=== PATIENT | female | born 1945 | race Caucasian/White ===

== ENCOUNTER 2017-01-11 10:49 | Inpatient (IN) | payer OTHER, MEDICARE ==
[2017-01-11] VITALS (9 sets, daily range): BP systolic 115–172; BP diastolic 62–82; PULSE 66–91; RESP 16–20; TEMP 97.4–98.1; O2SAT 96–100
[~2017-01-11] VITALS: Ht 160 cm; Wt 66.7 kg
[~2017-01-11 10:49] MED LIST: CIPR500T2 PO; LORT5TAB PO; MENE0.3T3 PO; METR-1 PO; PRIL20TA2 PO; PROM25SU8 PO; SIMV20 PO
[2017-01-11] MEDS ORDERED: SODIUM CHLOR 0.9% 1000 ML INJ 1,000 ML IV SCH ×2 (11:18→15:15)
--- NOTE | 2017-01-11 11:26 | PD ---
HPI Chief Complaint: Cardiac Complaint Time Seen by Provider: 11:05 Travel History International Travel<30 days: No Contact w/Intl Traveler<30days: No Traveled to known affect area: No History of Present Illness HPI 71-year-old female complains of abdominal pain with diarrhea. Patient states that the symptoms started this morning. Patient was driving her car and started having severe abdominal cramping and sharp pain. Patient pulled over on the side of the road. EMS was called. Patient was found to have bradycardic with heart rate in the 30s at the scene. Patient was given atropine 0.5 mg IV, Zofran 4 mg IV, normal saline solution 600 mL IV. Patient was admitted for to the ED for evaluation. Patient has history hypertension, diabetes on diet control, dyslipidemia, a defibrillation. Patient's on digoxin and Xarelto. Patient denies any headache. Patient denies any chest pain or shortness of breath. Patient states the abdominal pain cramping pain sharp pain diffuse over the abdomen. Patient denies any pain radiation. Patient denied dysuria or frequency. Patient denies any fever chills. Patient denies any back pain. On a scale of 1-10 the pain is an 8. Patient having diarrhea in the room in the ED. PFSH Past Medical History Atrial Fibrillation: Yes Cardiovascular Problems: Yes (AFIB) High Cholesterol: Yes Diminished Hearing: No GERD: Yes ?: Not Ectopic : Yes Past Surgical History Hysterectomy: Yes Other Surgery: Yes (BREAST AUGMENTATION X2) Social History Alcohol Use: Yes (OCCASIONAL GLASS OF WINE) Tobacco Use: No Substance Use: No Allergies-Medications (Allergen,Severity, Reaction): Coded Allergies: Sulfa (Verified Allergy, Intermediate, HEADACHES, 01/11/17) Uncoded Allergies: TAPE (Adverse Reaction, Mild, BLISTERS, 03/14/08) Reported Meds & Prescriptions Reported Meds & Active Scripts Active Reported Doxycycline (Doxycycline (Monohydrate)) 50 Mg Cap 50 Mg PO EVERY OTHER DAY Co Q 10 (Coenzyme Q10 (Ubidecarenone)) 100 Mg Cap 100 Mg PO DAILY Xarelto (Rivaroxaban) 20 Mg Tab 20 Mg PO DAILY Zegerid (Omeprazole-Sodium Bicarbonate) 20-1,100 Mg Cap 1 Cap PO DAILY Pristiq 24 HR (Desvenlafaxine ER 24 HR) 100 Mg Tab 100 Mg PO HS Atorvastatin (Atorvastatin Calcium) 40 Mg Tab 40 Mg PO HS Levothyroxine (Levothyroxine Sodium) 75 Mcg Tab 75 Mcg PO DAILY Digoxin 0.125 Mg Tab 0.125 Mg PO DAILY Lisinopril 10 Mg Tab 10 Mg PO DAILY Metoprolol Tartrate 25 Mg Tab 25 Mg PO DAILY Review of Systems General / Constitutional: No: Fever Eyes: No: Visual changes HENT: No: Headaches Cardiovascular: No: Chest Pain or Discomfort Respiratory: No: Shortness of Breath Gastrointestinal: Positive: Diarrhea, Abdominal Pain Genitourinary: No: Dysuria Musculoskeletal: No: Pain Skin: No Rash Neurologic: No: Weakness Psychiatric: No: Depression Endocrine: No: Polydipsia Hematologic/Lymphatic: No: Easy Bruising Physical Exam Narrative GENERAL: Well-nourished, well-developed patient. SKIN: Focused skin assessment warm/dry. HEAD: Normocephalic. EYES: No scleral icterus. No injection or drainage. NECK: Supple, trachea midline. No JVD or lymphadenopathy. CARDIOVASCULAR: Regular rate and rhythm without murmurs, gallops, or rubs. RESPIRATORY: Breath sounds equal bilaterally. No accessory muscle use. GASTROINTESTINAL: Abdomen soft, nondistended. Patient has moderate diffuse tenderness over the abdomen. No rebound tenderness. No mass. MUSCULOSKELETAL: No cyanosis, or edema. BACK: Nontender without obvious deformity. No CVA tenderness. Neurologic exam normal. Data Data Last Documented VS Vital Signs Date Time Temp Pulse Resp B/P Pulse Ox O2 Delivery O2 Flow Rate FiO2 01/11/17 14:00 66 16 172/66 97 Room Air 01/11/17 10:52 97.4 Orders Complete Blood Count With Diff (01/11/17 11:18) Comprehensive Metabolic Panel (01/11/17 11:18) Prothrombin Time / Inr (Pt) (01/11/17 11:18) Act Partial Throm Time (Ptt) (01/11/17 11:18) Urinalysis - C+S If Indicated (01/11/17 11:18) Iv Access Insert/Monitor (01/11/17 11:18) Ecg Monitoring (01/11/17 11:18) Oximetry (01/11/17 11:18) Sodium Chlor 0.9% 1000 Ml Inj (Ns 1000 M (01/11/17 11:18) Electrocardiogram (01/11/17 11:18) Chest, Single Ap (01/11/17 11:18) Digoxin (01/11/17 11:19) Thyroid Stimulating Hormone (01/11/17 11:19) Morphine Inj (Morphine Inj) (01/11/17 11:30) Ondansetron Inj (Zofran Inj) (01/11/17 11:30) Ct Abd/Pel W Iv Contrast(Rout) (01/11/17 11:21) Iohexol 350 Inj (Omnipaque 350 Inj) (01/11/17 13:56) Levofloxacin 750 Mg Premix Inj (Levaquin (01/11/17 15:15) Metronidazole 500 Mg Inj (Flagyl 500 Mg (01/11/17 15:15) Labs Laboratory Tests Test 01/11/17 01/11/17 11:21 14:08 White Blood Count 4.4 TH/MM3 Red Blood Count 4.37 MIL/MM3 Hemoglobin 11.6 GM/DL Hematocrit 35.6 % Mean Corpuscular Volume 81.6 FL Mean Corpuscular Hemoglobin 26.5 PG Mean Corpuscular Hemoglobin 32.4 % Concent Red Cell Distribution Width 16.9 % Platelet Count 231 TH/MM3 Mean Platelet Volume 7.9 FL Neutrophils (%) (Auto) 50.7 % Lymphocytes (%) (Auto) 35.7 % Monocytes (%) (Auto) 10.2 % Eosinophils (%) (Auto) 2.7 % Basophils (%) (Auto) 0.7 % Neutrophils # (Auto) 2.2 TH/MM3 Lymphocytes # (Auto) 1.6 TH/MM3 Monocytes # (Auto) 0.4 TH/MM3 Eosinophils # (Auto) 0.1 TH/MM3 Basophils # (Auto) 0.0 TH/MM3 CBC Comment DIFF FINAL Differential Comment Prothrombin Time 12.2 SEC Prothromb Time International 1.1 RATIO Ratio Activated Partial 21.5 SEC Thromboplast Time Sodium Level 140 MEQ/L Potassium Level 4.4 MEQ/L Chloride Level 108 MEQ/L Carbon Dioxide Level 25.1 MEQ/L Anion Gap 7 MEQ/L Blood Urea Nitrogen 20 MG/DL Creatinine 1.06 MG/DL Estimat Glomerular Filtration 51 ML/MIN Rate Random Glucose 113 MG/DL Calcium Level 8.8 MG/DL Total Bilirubin 0.3 MG/DL Aspartate Amino Transf 34 U/L (AST/SGOT) Alanine Aminotransferase 38 U/L (ALT/SGPT) Alkaline Phosphatase 52 U/L Total Protein 6.1 GM/DL Albumin 3.0 GM/DL Thyroid Stimulating Hormone 1.690 uIU/ML 3rd Gen Digoxin Level 1.0 NG/ML Urine Color LIGHT-YELLOW Urine Turbidity CLEAR Urine pH 7.5 Urine Specific [place] 1.008 Urine Protein NEG mg/dL Urine Glucose (UA) NEG mg/dL Urine Ketones NEG mg/dL Urine Occult Blood NEG Urine Nitrite NEG Urine Bilirubin NEG Urine Urobilinogen LESS THAN 2.0 MG/DL Urine Leukocyte Esterase NEG Urine RBC LESS THAN 1 /hpf Urine WBC LESS THAN 1 /hpf Urine Squamous Epithelial 1 /hpf Cells Microscopic Urinalysis Comment CULT NOT INDICATED MDM Medical Decision Making Medical Screen Exam Complete: Yes Emergency Medical Condition: Yes Interpretation(s) 12:39 PM. Last Impressions Chest X-Ray 01/11/17 1118 Signed Impressions: Service Date/Time: Wednesday, January 11, 2017 11:30 - CONCLUSION: No acute disease. Mau Jackson MD 12:39 PM. CBC within normal limit. BUN 20. Creatinine 1.06. Digoxin 1.0. [address] scan abdomen and pelvis shows mild colitis involving sigmoid colon. Last Impressions Abdomen/Pelvis CT 01/11/17 1121 Signed Impressions: Service Date/Time: Wednesday, January 11, 2017 13:45 - CONCLUSION: 1. Enlargement of the liver with decreased attenuation suggesting fatty infiltration. 2. Trace amount of free fluid within the pelvis. 3. Subtle bowel wall thickening inflammatory changes involving the sigmoid colon suggesting a mild colitis. Everardo Dowd MD Chest X-Ray 01/11/17 1118 Signed Impressions: Service Date/Time: Wednesday, January 11, 2017 11:30 - CONCLUSION: No acute disease. Mau Jackson MD Differential Diagnosis Differential diagnosis including gastroenteritis, gastritis, PUD, pancreatitis, cholecystitis, colitis, UTI, pyelonephritis, sinus bradycardia, atrial fibrillation with slow ventricular response. Narrative Course 71-year-old female with abdominal pain and diarrhea. Normal saline solution 1 L IV bolus. Morphine 2 mg IV. Zofran 4 mg IV. Levaquin 750 mg IV. Flagyl 500 mg IV. Diagnosis Primary Impression: Colitis Eze Patiño MD January 11, 2017 11:26
[2017-01-11] MEDS ORDERED: ONDANSETRON HCL 4 MG/2 ML VIAL IV PUSH ONE (11:30)
[2017-01-11] MEDS ORDERED: MORPHINE SULFATE 4 MG/ML INJ IV PUSH ONE (11:30)
[2017-01-11 11:32] LABS: AUTOMATED NEUTROPHIL # 2.2 TH/MM3 (1.8-7.7); BASOPHIL % 0.7 % (0.0-2.0); EOSINOPHIL # 0.1 TH/MM3 (0-0.4); EOSINOPHIL % 2.7 % (0.0-4.0); HEMATOCRIT 35.6 % (35.0-46.0); HEMO FLAGS DIFF FINAL; LYMPH % 35.7 % (9.0-44.0); LYMPHOCYTE # 1.6 TH/MM3 (1.0-4.8); MEAN CELL VOLUME 81.6 FL (80.0-100.0); MEAN CORPUSCULAR HEMOGLOBIN 26.5 PG (27.0-34.0); MEAN CORPUSCULAR HGB CONC 32.4 % (32.0-36.0); MONO % 10.2 % (0.0-8.0); NEUT % 50.7 % (16.0-70.0); PLATELET COUNT 231 TH/MM3 (150-450); RED BLOOD COUNT 4.37 MIL/MM3 (4.00-5.30); RED CELL DISTRIBUTION WIDTH 16.9 % (11.6-17.2); WHITE BLOOD COUNT 4.4 TH/MM3 (4.0-11.0)
[2017-01-11] MEDS ORDERED: ZEGE20CA4 PO (11:40)
[2017-01-11] MEDS ORDERED: CO Q100C9 PO (11:40)
[2017-01-11] MEDS ORDERED: XARE20TA PO (11:40)
[2017-01-11] MEDS ORDERED: DOXY0.02 PO (11:40)
[2017-01-11] MEDS ORDERED: ATOR40TA16 PO (11:40)
[2017-01-11] MEDS ORDERED: LEVO75TA3 PO (11:40)
[2017-01-11] MEDS ORDERED: DIGO0.12 PO (11:40)
[2017-01-11] MEDS ORDERED: METO25TA3 PO (11:40)
[2017-01-11] MEDS ORDERED: LISI10TA3 PO (11:40)
[2017-01-11] MEDS ORDERED: PRIS100T PO (11:40)
[2017-01-11 11:48] LABS: APTT (PATIENT) 21.5 SEC (24.3-30.1); INTERNATIONAL NORMALIZED RATIO 1.1 RATIO; PROTHROMBIN TIME - PATIENT 12.2 SEC (9.8-11.6)
[2017-01-11 11:59] LABS: ANION GAP 7 MEQ/L (5-15); AST (GOT) 34 U/L (15-37); BICARBONATE 25.1 MEQ/L (21.0-32.0); BLOOD UREA NITROGEN 20 MG/DL (7-18); CHLORIDE 108 MEQ/L (98-107); GLOMERULAR FILTRATION RATE 51 ML/MIN (>89); POTASSIUM 4.4 MEQ/L (3.5-5.1); SODIUM (NA) 140 MEQ/L (136-145)
[2017-01-11 12:02] LABS: ALKALINE PHOSPHATASE 52 U/L (45-117); ALT (GPT) 38 U/L (10-53); TOTAL BILIRUBIN ADULT 0.3 MG/DL (0.2-1.0)
--- NOTE | 2017-01-11 12:12 | RADRPT ---
EXAM DATE/TIME: 01/11/2017 11:30 [facility] COMPARISON: No previous studies available for comparison. INDICATIONS : Epigastric pain this morning. MEDICAL HISTORY : Hypercholesterolemia. Gastroesophageal reflux disease. Atrial fibrillation. SURGICAL HISTORY : Hysterectomy. ENCOUNTER: Initial ACUITY: 1 day PAIN SCORE: 5/10 LOCATION: Abdomen, upper quadrant. FINDINGS: A single view of the chest demonstrates the lungs to be symmetrically aerated without evidence of mas s, infiltrate or effusion. The cardiomediastinal contours are unremarkable. Osseous structures are intact. CONCLUSION: No acute disease. Mau aJckson MD on January 11, 2017 at 12:07 Board Certified Radiologist. This report was verified electronically.
[2017-01-11] MEDS ORDERED: IOHEXOL 350 MG/ML 10 ML VIAL (for RAD DIAG) IV ONE (13:56)
[2017-01-11 14:28] LABS: BLOOD, URINE NEG (NEG); GLUCOSE,URINE NEG (NEG); KETONE, URINE NEG (NEG); NITRITE,URINE NEG (NEG); PH, URINE 7.5 (5.0-8.5); SQUAMOUS EPITHELIAL CELL URINE 1 /hpf (0-5); URINE COLOR LIGHT-YELLOW (YELLW/STRAW)
[2017-01-11 14:34] LABS: COMMENT (UR) CULT NOT INDICATED; CULTURE IF INDICATED CULT NOT INDICATED
--- NOTE | 2017-01-11 14:40 | RADRPT ---
EXAM DATE/TIME: 01/11/2017 13:45 [facility] COMPARISON: No previous studies available for comparison. INDICATIONS : Generalized abdominal pain. IV CONTRAST: 94 cc Omnipaque 350 (iohexol) IV ORAL CONTRAST: No oral contrast ingested. RADIATION DOSE: 5.38 CTDIvol (mGy) MEDICAL HISTORY : Cardiovascular disease. SURGICAL HISTORY : Hysterectomy. ENCOUNTER: Initial ACUITY: 1 day PAIN SCALE: 5/10 LOCATION: Bilateral abdomen TECHNIQUE: Volumetric scanning of the abdomen and pelvis was performed. Using automated exposure control and ad justment of the mA and/or kV according to patient size, radiation dose was kept as low as reasonably achievable to obtain optimal diagnostic quality images. FINDINGS: The limited portion of the lung base visualized is clear. The liver is mildly enlarged. There is decreased attenuation of the liver suggesting diffuse fatty in filtration. The spleen, pancreas, adrenal glands and kidneys are intact. There is no retroperitoneal lymphadenopa thy. The visualized loops of small and large bowel in the upper abdomen are unremarkable. No free air or f ree fluid is present. Imaging through the pelvis demonstrate a small amount of free fluid within the low pelvis. The patien t is post hysterectomy. No iliac or inguinal adenopathy is present. Imaging of the loops of small large bowel within the pelvis demonstrate subtle bowel wall thickening of the distal sigmoid colon and slight inflammatory changes this could suggest a mild colitis. The visualized bony structures are grossly intact. CONCLUSION: 1. Enlargement of the liver with decreased attenuation suggesting fatty infiltration. 2. Trace amount of free fluid within the pelvis. 3. Subtle bowel wall thickening inflammatory changes involving the sigmoid colon suggesting a mild co litis. Everardo Dowd MD on January 11, 2017 at 14:26 Board Certified Radiologist. This report was verified electronically.
[2017-01-11] MEDS ORDERED: LEVOFLOXACIN 750 MG PREMIX INJ 150 ML IV ONE (15:15)
[2017-01-11] MEDS ORDERED: metroNIDAZOLE 500 MG INJ 100 ML IV ONE (15:15)
[2017-01-11] MEDS ORDERED: diphenhydrAMINE HCL 50 MG/ML VIAL IV PUSH ONE (15:15)
[2017-01-11] MEDS ORDERED: METOCLOPRAMIDE HCL 10 MG/2 ML VIAL IV PUSH ONE (15:15)
[2017-01-11] MEDS ORDERED: MORPHINE SULFATE 4 MG/ML INJ IV PUSH PRN (16:15)
--- NOTE | 2017-01-11 16:28 | HHI.HP ---
[facility] Primary Care Physician Thierno Ramirez MD Admission Diagnosis colitis Diagnoses: Chief Complaint: Abdominal pain , diarrhea Travel History International Travel<30 Days: No Contact w/Intl Traveler <30 Da: No Traveled to Known Affected Are: No History of Present Illness Patient is a very pleasant 70-year-old female with known history of atrial fibrillation, hypertension, hypothyroidism who this morning while driving suddenly experienced abdominal cramps severe almost to the point of passing out. Patient pulled the car over to the side and called her who in turn called EMS and on site patient's heart rate was noted to be in the 30s. Patient was in severe pain. She was given atropine IV on the site. On further questioning patient has been having on and off diarrhea all her life and has had several colonoscopies several times in the past. Patient moves her bowels on a daily basis intermittent loose stools. However for the past 2-3 days have been having loose stools brown yellow liquid. On evaluation here in the ER was noted to have guaiac-positive stools and lupus stools had bright red blood. patient admitted for further evaluation and management. Denies any family members with the same complaints Review of Systems Constitutional: DENIES: Diaphoretic episodes, Fatigue, Fever, Weight gain, Weight loss, Chills, Dizziness, Change in appetite, Night Sweats Endocrine: DENIES: Abnorml menstrual pattern, Heat/cold intolerance, Polydipsia , Polyuria, Polyphagia Eyes: DENIES: Blurred vision, Diplopia, Eye inflammation, Eye pain, Vision loss , Photosensitivity, Double Vision Ears, nose, mouth, throat: DENIES: Tinnitus, Hearing loss, Vertigo, Nasal discharge, Oral lesions, Throat pain, Hoarseness, Ear Pain, Running Nose, Epistaxis, Sinus Pain, Toothache, Odynophagia Respiratory: DENIES: Apneas, Cough, Snoring, Wheezing, Hemoptysis, Sputum production, Shortness of breath Cardiovascular: DENIES: Chest pain, Palpitations, Syncope, Dyspnea on Exertion , PND, Lower Extremity Edema, Orthopnea, Claudication Gastrointestinal: COMPLAINS OF: Diarrhea Genitourinary: DENIES: Abnormal vaginal bleeding, Dysmenorrhea, Dyspareunia, Sexual dysfunction, Urinary frequency, Urinary incontinence, Urgency, Hematuria , Dysuria, Nocturia, Vaginal discharge Musculoskeletal: DENIES: Joint pain, Muscle aches, Stiffness, Joint Swelling, Back pain, Neck pain Integumentary: DENIES: Abnormal pigmentation, Pruritus, Rash, Nail changes, Breast masses, Breast skin changes, Nipple discharge Hematologic/lymphatic: DENIES: Bruising, Lymphadenopathy Immunologic/allergic: DENIES: Eczema, Urticaria Neurologic: DENIES: Abnormal gait, Headache, Localized weakness, Paresthesias, Seizures, Speech Problems, Tremor, Poor Balance Psychiatric: DENIES: Anxiety, Confusion, Mood changes, Depression, Hallucinations, Agitation, Suicidal Ideation, Homicidal Ideation, Delusions Past Family Social History Past Medical History History of atrial fibrillation, hypertension History of colitis in the past History of hypothyroidism History of obstructive sleep apnea C Pap at bedtime in the past but discontinued History of ectopic pregnancies 2 Past Surgical History Breasts implants Reported Medications Lopressor 25 mg daily Lisinopril 10 mg daily Digoxin 0.125 mg daily Synthroid 75 g daily next an 8 pravastatin 1 tab daily Prostatic 100 mg daily Surgery with 20 mg daily "omeprazole plus sodium bicarbonate up" daily Xarelto 20 mg daily Coenzyme Q 100 mg daily Doxycycline 50 mg every other day for a skin/scalp condition Claritin when necessary Allergies: Coded Allergies: Sulfa (Verified Allergy, Intermediate, HEADACHES, 01/11/17) Uncoded Allergies: TAPE (Adverse Reaction, Mild, BLISTERS, 03/14/08) Family History Noncontributory Social History History of smoking quit 50 years ago Occasional wine No history of substance abuse Physical Exam Vital Signs Vital Signs Date Time Temp Pulse Resp B/P Pulse Ox O2 Delivery O2 Flow Rate FiO2 01/11/17 14:00 66 16 172/66 97 Room Air 01/11/17 12:00 78 16 115/68 97 Room Air 01/11/17 11:24 16 98 Room Air 01/11/17 10:52 97.4 91 16 157/82 100 Physical Exam GENERAL: Awake alert, weak looking, in no apparent distress. SKIN: No rashes, ecchymoses or lesions. Cool and dry. HEAD: Atraumatic. Normocephalic. No temporal or scalp tenderness. Scalp no active lesions EYES: Pupils equal round and reactive. Extraocular motions intact. No scleral icterus. No injection or drainage. ENT: Nose without bleeding, purulent drainage or septal hematoma. Throat without erythema, tonsillar hypertrophy or exudate. Uvula midline. Airway patent. Dry oral mucosa NECK: Trachea midline. No JVD or lymphadenopathy. Supple, nontender, no meningeal signs. CARDIOVASCULAR: Irregular rhythm without murmurs, gallops, or rubs. RESPIRATORY: Clear to auscultation. Breath sounds equal bilaterally. No wheezes , rales, or rhonchi. GASTROINTESTINAL: Abdomen , few bowel sounds, tender to palpation of both lower quadrant area MUSCULOSKELETAL: Extremities without clubbing, cyanosis, or edema. No joint tenderness, effusion, or edema noted. No calf tenderness. Negative Homans sign bilaterally. NEUROLOGICAL: Awake and alert. Cranial nerves II through XII intact. Motor and sensory grossly within normal limits. Five out of 5 muscle strength in all muscle groups. Normal speech. Laboratory Laboratory Tests Test 01/11/17 01/11/17 11:21 14:08 White Blood Count 4.4 Red Blood Count 4.37 Hemoglobin 11.6 Hematocrit 35.6 Mean Corpuscular Volume 81.6 Mean Corpuscular Hemoglobin 26.5 Mean Corpuscular Hemoglobin 32.4 Concent Red Cell Distribution Width 16.9 Platelet Count 231 Mean Platelet Volume 7.9 Neutrophils (%) (Auto) 50.7 Lymphocytes (%) (Auto) 35.7 Monocytes (%) (Auto) 10.2 Eosinophils (%) (Auto) 2.7 Basophils (%) (Auto) 0.7 Neutrophils # (Auto) 2.2 Lymphocytes # (Auto) 1.6 Monocytes # (Auto) 0.4 Eosinophils # (Auto) 0.1 Basophils # (Auto) 0.0 CBC Comment DIFF FINAL Differential Comment Prothrombin Time 12.2 Prothromb Time International 1.1 Ratio Activated Partial 21.5 Thromboplast Time Sodium Level 140 Potassium Level 4.4 Chloride Level 108 Carbon Dioxide Level 25.1 Anion Gap 7 Blood Urea Nitrogen 20 Creatinine 1.06 Estimat Glomerular Filtration 51 Rate Random Glucose 113 Calcium Level 8.8 Total Bilirubin 0.3 Aspartate Amino Transf 34 (AST/SGOT) Alanine Aminotransferase 38 (ALT/SGPT) Alkaline Phosphatase 52 Total Protein 6.1 Albumin 3.0 Thyroid Stimulating Hormone 1.690 3rd Gen Digoxin Level 1.0 Urine Color LIGHT-YELLOW Urine Turbidity CLEAR Urine pH 7.5 Urine Specific [place] 1.008 Urine Protein NEG Urine Glucose (UA) NEG Urine Ketones NEG Urine Occult Blood NEG Urine Nitrite NEG Urine Bilirubin NEG Urine Urobilinogen LESS THAN 2.0 Urine Leukocyte Esterase NEG Urine RBC LESS THAN 1 Urine WBC LESS THAN 1 Urine Squamous Epithelial 1 Cells Microscopic Urinalysis Comment CULT NOT INDICATED Result Diagram: 01/11/17 1121 01/11/17 1121 Imaging Last Impressions Abdomen/Pelvis CT 01/11/17 1121 Signed Impressions: Service Date/Time: Wednesday, January 11, 2017 13:45 - CONCLUSION: 1. Enlargement of the liver with decreased attenuation suggesting fatty infiltration. 2. Trace amount of free fluid within the pelvis. 3. Subtle bowel wall thickening inflammatory changes involving the sigmoid colon suggesting a mild colitis. Everardo Dowd MD Chest X-Ray 01/11/17 1118 Signed Impressions: Service Date/Time: Wednesday, January 11, 2017 11:30 - CONCLUSION: No acute disease. Mau Jackson MD 12-lead EKG shows atrial rhythm no acute ST-T wave changes Assessment and Plan Assessment and Plan 71-year-old female presenting with Bradycardia most likely vagal response to severe pain. History of chronic atrial fibrillation- rate controlled- initially jesse from vagal reaction history of hypertension Will monitor on telemetry hold off on digoxin and Lopressor for now and restart in a.m. Continue on Lisinopril Will hold off on Xarelto with GIB - for possible scope in a.m. Acute LGIB due to Acute colitis/diarrhea , lower GI bleed secondary to colitis Patient started on Levaquin and Flagyl IV. We'll send stools for C. difficile (patient on doxycycline anne marie years)- Discontinue home doxycycline GI will be following Morphine sulfate IV prn for pain Acute kidney injury secondary to diarrhea Continue on IV fluids Follow BMP History of GERD. Continue on PPI IV route History of hyperlipidemia continue on statins History of hypothyroidism continue on Synthroid. TSH normal TEDs Discussed Condition With Patient and at bedside Physician Certification 2 Midnight Certification Type: Admission for Inpatient Services Order for Inpatient Services The services are ordered in accordance with Medicare regulations or non- Medicare payer requirements, as applicable. In the case of services not specified as inpatient-only, they are appropriately provided as inpatient services in accordance with the 2-midnight benchmark. Estimated LOS (days): 3 days is the estimated time the patient will need to remain in the hospital, assuming treatment plan goals are met and no additional complications. Post-Hospital Plan: Home Wayne Braswell MD January 11, 2017 16:28 Wayne Braswell MD January 11, 2017 16:28
[2017-01-11] MEDS: PANTOPRAZOLE SODIUM 40 MG VIAL IV PUSH SCH (17:29)
--- NOTE | 2017-01-11 17:54 | MB ---
cc: ELVIS LIRIANO. JOSEFA CAMACHO M.D., ALFEA M. M.D. DATE OF CONSULTATION January 11, [address] Liriano REASON FOR CONSULTATION Abdominal pain, rectal bleeding, colitis. HISTORY OF PRESENT ILLNESS Mrs. Cole is a 70-year-old lady with on and off problems with abdominal pain and discomfort. She states that she has severe abdominal pain requiring her to kiln puller on the side of the road when she was driving. This was followed by some diarrhea and rectal bleeding. She was then brought to the hospital. CT scan here suggests possibility of mild left-sided colitis. The patient continues to pass blood, continues to have diarrhea and is having left lower quadrant abdominal pain. REVIEW OF SYSTEMS Lower quadrant abdominal pain, passing blood clots and diarrhea. No hematemesis are reported at this time. PAST MEDICAL HISTORY Atrial fibrillation, hypertension, history of colitis in the past, hypothyroidism, obstructive sleep apnea. PAST SURGICAL HISTORY Breast implants, colonoscopy, endoscopy in the past about 4 years ago. MEDICATIONS On admission: 1. Lopressor. 2. Lisinopril. 3. Digoxin. 4. Synthroid. 5. Omeprazole 20 milligrams Xarelto. 6. Doxycycline. 7. Claritin. ALLERGIES ALLERGIES TO SULFA DRUGS. FAMILY HISTORY Family history is noncontributory. SOCIAL HISTORY The patient drinks wine occasionally. No other drugs reported. No smoking. PHYSICAL EXAMINATION GENERAL: physical examination reveals a well-nourished lady in no apparent distress. VITAL SIGNS: Stable. HEAD AND NECK EXAMINATION: Anicteric sclerae. CHEST: Bilateral air entry with rales. ABDOMEN: Abdomen is soft. Tenderness to palpation with guarding in the left lower quadrant. 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 RECTAL: The rectal exam is deferred at this time. LABORATORY DATA Labs reveal white cell count of 4.4, hemoglobin is 11.6, creatinine is 1.06. Liver function tests are normal. IMAGING STUDIES CT of the abdomen and pelvis reveals enlarged liver and some subtle bowel wall thickening in the sigmoid colon. IMPRESSION Colitis. RECOMMENDATIONS Stool studies have been ordered. Hold off on Xarelto at this time. Hold off on the doxycycline. The patient has been started on Levaquin and Flagyl. Colonoscopy is tentatively planned for tomorrow. This has been discussed with the patient and the as well as Dr. Braswell. Thank you for this referral. MD RADHA Lara /4:47 PM /5:44 PM
[2017-01-11] MEDS: metroNIDAZOLE 500 MG INJ 100 ML IV SCH (18:14)
[2017-01-11] MEDS: D5-NS + KCL 20 MEQ INJ 1,000 ML IV SCH (18:58)
[2017-01-11 19:30] LABS: C. DIFF EPI 027 PRESUMPTIVE NEGATIVE (NEGATIVE); C. DIFF TOXIN PCR NEGATIVE (NEGATIVE)
[2017-01-11] MEDS: ONDANSETRON HCL 4 MG/2 ML VIAL IV PUSH PRN (20:10)
[2017-01-11] MEDS: ATORVASTATIN 40 MG TAB PO SCH (20:11)
[2017-01-11] MEDS ORDERED: DESVENLAFAXINE 100 MG PO SCH (21:00)
[2017-01-11] MEDS ORDERED: [UNRECOGNIZED DRUG - OTHER] PO SCH (21:00)
[2017-01-12] MEDS: metroNIDAZOLE 500 MG INJ 100 ML IV SCH ×4 (00:29→23:30)
[2017-01-12] MEDS: D5-NS + KCL 20 MEQ INJ 1,000 ML IV SCH ×2 (03:00→05:19)
[2017-01-12 04:18] VITALS: BP 124/66; PULSE 79; RESP 16; TEMP 98.2; O2SAT 99
[2017-01-12] MEDS: LEVOTHYROXINE SODIUM 75 MCG TAB PO SCH (05:18)
[2017-01-12 07:37] LABS: BICARBONATE 24.6 MEQ/L (21.0-32.0); POTASSIUM 3.9 MEQ/L (3.5-5.1)
[2017-01-12 08:00] VITALS: BP 140/76; PULSE 85; RESP 20; TEMP 98.1; O2SAT 99
[2017-01-12] MEDS ORDERED: NON-FORMULARY DRUG (Coenzyme Q10 (Ubidecarenone) (Co Q 10) 100 MG) PO SCH (09:00)
[2017-01-12] MEDS: LISINOPRIL 10 MG TAB PO SCH (09:16)
[2017-01-12] MEDS ORDERED: PEG (High)/E-LYTE SOLN 4000 ML BTL PO ONE (09:45)
--- NOTE | 2017-01-12 10:41 | HHI.PR ---
Subjective Remarks feeling better, mild abdominal "cramps", no nausea or vomiting + bright red black stools this am Objective Vitals Vital Signs Date Time Temp Pulse Resp B/P Pulse Ox O2 Delivery O2 Flow Rate FiO2 01/12/17 08:00 98.1 85 20 140/76 99 01/12/17 07:15 99 Room Air 01/12/17 04:18 98.2 79 16 124/66 99 01/11/17 23:45 98.1 85 16 137/62 96 01/11/17 20:15 97.4 76 16 145/67 100 01/11/17 20:00 85 01/11/17 18:30 98.0 80 20 124/75 98 01/11/17 17:00 66 16 149/74 99 Room Air 01/11/17 14:00 66 16 172/66 97 Room Air 01/11/17 12:00 78 16 115/68 97 Room Air 01/11/17 11:24 16 98 Room Air 01/11/17 10:52 97.4 91 16 157/82 100 I/O 01/11/17 01/11/17 01/11/17 01/12/17 01/12/17 01/12/17 07:00 15:00 23:00 07:00 15:00 23:00 Intake Total 60 ml 1106 ml Output Total 400 ml Balance 60 ml 706 ml Intake Oral 60 ml 240 ml IV Total 866 ml Output Urine Total 400 ml # Voids 1 # Bowel Movements 4 1 0 Result Diagram: 01/11/17 1121 01/12/17 0614 Imaging Last Impressions Abdomen/Pelvis CT 01/11/17 1121 Signed Impressions: Service Date/Time: Wednesday, January 11, 2017 13:45 - CONCLUSION: 1. Enlargement of the liver with decreased attenuation suggesting fatty infiltration. 2. Trace amount of free fluid within the pelvis. 3. Subtle bowel wall thickening inflammatory changes involving the sigmoid colon suggesting a mild colitis. Everardo Dowd MD Chest X-Ray 01/11/17 1118 Signed Impressions: Service Date/Time: Wednesday, January 11, 2017 11:30 - CONCLUSION: No acute disease. Mau Jackson MD Objective Remarks awake and alert, oriented x 3 anicteric lungs clear irregular rhythm abdomen- soft, good bowel sounds, no guarding or rigidity extremities no edema A/P Assessment and Plan 71-year-old female presenting with Bradycardia most likely vagal response to severe pain. History of chronic atrial fibrillation- rate controlled- initially jesse from vagal reaction history of hypertension Will monitor on telemetry hold off on digoxin and Lopressor for now and restart in a.m. Will hold off on Xarelto with GIB - for possible scope in a.m. restart her on her BB- Lopressor 6.25 mg po bid Acute LGIB due to Acute colitis/diarrhea on Levaquin and Flagyl IV. We'll send stools for C. difficile (patient on doxycycline anne marie years)- Discontinue home doxycycline GI will be following Morphine sulfate IV prn for pain Acute kidney injury secondary to diarrhea- Improved Continue on IV fluids Follow BMP History of GERD. Continue on PPI IV route History of hyperlipidemia continue on statins History of hypothyroidism continue on Synthroid. TSH normal Wayne Torrez MD January 12, 2017 10:41
[2017-01-12] MEDS ORDERED: PILL SPLITTER OTHER PRN (11:00)
[2017-01-12 12:00] VITALS: BP 112/65; PULSE 93; RESP 18; TEMP 97; O2SAT 95
[2017-01-12 12:40] LABS: HEMATOCRIT 35.7 % (35.0-46.0); MEAN CELL VOLUME 81.4 FL (80.0-100.0); MEAN CORPUSCULAR HEMOGLOBIN 25.7 PG (27.0-34.0); MEAN CORPUSCULAR HGB CONC 31.6 % (32.0-36.0); PLATELET COUNT 216 TH/MM3 (150-450); RED BLOOD COUNT 4.38 MIL/MM3 (4.00-5.30); RED CELL DISTRIBUTION WIDTH 17.1 % (11.6-17.2)
[2017-01-12 13:28] LABS: REVIEW FLAG FINAL
--- NOTE | 2017-01-12 14:58 | HHI.GIFU ---
Subjective Remarks Pt resting comfortably in bed. She said she is still passing bright red blood clots with BMs. No N/V, abd pain. (Tori Flood) Objective Vitals I&O Vital Signs Date Time Temp Pulse Resp B/P Pulse Ox O2 Delivery O2 Flow Rate FiO2 01/12/17 12:00 97.0 93 18 112/65 95 01/12/17 08:00 98.1 85 20 140/76 99 01/12/17 07:15 99 Room Air 01/12/17 04:18 98.2 79 16 124/66 99 01/11/17 23:45 98.1 85 16 137/62 96 01/11/17 20:15 97.4 76 16 145/67 100 01/11/17 20:00 85 01/11/17 18:30 98.0 80 20 124/75 98 01/11/17 17:00 66 16 149/74 99 Room Air I/O 01/11/17 01/11/17 01/11/17 01/12/17 01/12/17 01/12/17 07:00 15:00 23:00 07:00 15:00 23:00 Intake Total 60 ml 1106 ml Output Total 400 ml Balance 60 ml 706 ml Intake Oral 60 ml 240 ml IV Total 866 ml Output Urine Total 400 ml # Voids 1 # Bowel Movements 4 1 0 Laboratory Laboratory Tests Test 01/11/17 01/12/17 01/12/17 17:47 06:14 12:06 Stool C. difficile Toxin (PCR) NEGATIVE Stl C. difficile Toxin PRESUMPTIVE Epiderm 027 NEGATIVE Sodium Level 141 Potassium Level 3.9 Chloride Level 107 Carbon Dioxide Level 24.6 Anion Gap 9 Blood Urea Nitrogen 17 Creatinine 0.96 Estimat Glomerular Filtration 57 Rate Random Glucose 110 Calcium Level 8.2 White Blood Count 14.0 Red Blood Count 4.38 Hemoglobin 11.3 Hematocrit 35.7 Mean Corpuscular Volume 81.4 Mean Corpuscular Hemoglobin 25.7 Mean Corpuscular Hemoglobin 31.6 Concent Red Cell Distribution Width 17.1 Platelet Count 216 Mean Platelet Volume 8.2 Imaging Last Impressions Abdomen/Pelvis CT 01/11/17 1121 Signed Impressions: Service Date/Time: Wednesday, January 11, 2017 13:45 - CONCLUSION: 1. Enlargement of the liver with decreased attenuation suggesting fatty infiltration. 2. Trace amount of free fluid within the pelvis. 3. Subtle bowel wall thickening inflammatory changes involving the sigmoid colon suggesting a mild colitis. Everardo Dowd MD Chest X-Ray 01/11/17 1118 Signed Impressions: Service Date/Time: Wednesday, January 11, 2017 11:30 - CONCLUSION: No acute disease. Mau Jackson MD Physical Exam HEENT: EOMI; normocephalic; atraumatic; no jaundice. CHEST: Chest is clear to auscultation and percussion. CARDIAC: Regular rate and rhythm with no murmur gallop or rubs. ABDOMEN: Soft, nondistended, RLQ tenderness; no hepatosplenomegaly; bowel sounds are present in all four quadrants. EXTREMITIES: No clubbing, cyanosis, or edema. SKIN: Normal; no rash; no jaundice. OPERATIONS LIEUTENANT: No focal deficits; alert and oriented times three. (Tori Flood) Assessment and Plan Plan ASSESSMENT: - colitis - pt with diarrhea, passing blood with BMs. c diff neg. CT 01-11-17 -- -> 1. Enlargement of the liver with decreased attenuation suggesting fatty infiltration. 2. Trace amount of free fluid within the pelvis. 3. Subtle bowel wall thickening inflammatory changes involving the sigmoid colon suggesting a mild colitis. antibiotics. Colonoscopy tomorrow. PLAN: - colonoscopy tomorrow - obtain consent - golytely prep - clears today - NPO after midnight - further recommendations based on results of above - continue abx - supportive care This pt seen by myself and Dr Elliott and this note is written on his behalf ( Tori Flood) Physician Comments Stool studies -ve, still with bleeding . Colonoscopy tomorrow. (Lyudmila Elliott MD) Tori Flood January 12, 2017 14:58 Lyudmila Elliott MD January 12, 2017 15:41
[2017-01-12 16:00] VITALS: BP 150/76; PULSE 78; RESP 18; TEMP 98.1; O2SAT 100
[2017-01-12] MEDS: PANTOPRAZOLE SODIUM 40 MG VIAL IV PUSH SCH (17:26)
[2017-01-12] MEDS: LEVOFLOXACIN 500 MG PREMIX INJ 100 ML IV SCH (17:26)
--- NOTE | 2017-01-12 18:50 | EKG ---
Date Performed: 01/11/2017 Time Performed: 10:57:26 PTAGE: 71 years EKG: ATRIAL FIBRILLATION LOW QRS VOLTAGE IN PRECORDIAL LEADS SEPTAL MYOCARDIAL INFARCTION ABNORM AL ECG NO PREVIOUS TRACING DOCTOR: Brian Lux Interpretating Date/Time 01/12/2017 18:45:05
[2017-01-12] MEDS: ONDANSETRON HCL 4 MG/2 ML VIAL IV PUSH PRN (19:29)
[2017-01-12 20:00] VITALS: PULSE 80
[2017-01-12] MEDS: ATORVASTATIN 40 MG TAB PO SCH (20:09)
[2017-01-12] MEDS: METOPROLOL TARTRATE 25 MG TAB PO SCH (20:09)
[2017-01-12 23:22] VITALS: BP 158/72; PULSE 78; RESP 18; TEMP 98.2; O2SAT 99
[2017-01-12 23:36] LABS: HEMATOCRIT 34.8 % (35.0-46.0); MEAN CELL VOLUME 81.9 FL (80.0-100.0); MEAN CORPUSCULAR HEMOGLOBIN 25.6 PG (27.0-34.0); MEAN CORPUSCULAR HGB CONC 31.3 % (32.0-36.0); PLATELET COUNT 205 TH/MM3 (150-450); RED BLOOD COUNT 4.25 MIL/MM3 (4.00-5.30); RED CELL DISTRIBUTION WIDTH 17.1 % (11.6-17.2); REVIEW FLAG FINAL; WHITE BLOOD COUNT 12.6 TH/MM3 (4.0-11.0)
[2017-01-12 23:51] LABS: ANION GAP 10 MEQ/L (5-15); BICARBONATE 21.9 MEQ/L (21.0-32.0); BLOOD UREA NITROGEN 10 MG/DL (7-18); CHLORIDE 105 MEQ/L (98-107); GLOMERULAR FILTRATION RATE 74 ML/MIN (>89); MAGNESIUM 1.7 MG/DL (1.5-2.5); POTASSIUM 3.7 MEQ/L (3.5-5.1); SODIUM (NA) 137 MEQ/L (136-145)
[2017-01-13] MEDS: D5-NS + KCL 20 MEQ INJ 1,000 ML IV SCH ×2 (03:17→19:18)
[2017-01-13 04:10] VITALS: BP 132/74; PULSE 85; RESP 18; TEMP 97.3; O2SAT 97
[2017-01-13] MEDS: LEVOTHYROXINE SODIUM 75 MCG TAB PO SCH (06:09)
[2017-01-13 08:00] VITALS: BP 129/85; PULSE 82; RESP 18; TEMP 98.2; O2SAT 98
[2017-01-13] MEDS: LISINOPRIL 10 MG TAB PO SCH (08:14)
[2017-01-13] MEDS: metroNIDAZOLE 500 MG INJ 100 ML IV SCH ×2 (08:14→16:33)
[2017-01-13] MEDS: METOPROLOL TARTRATE 25 MG TAB PO SCH ×2 (08:14→21:15)
[2017-01-13 09:30] VITALS: BP 129/85; PULSE 82; RESP 18; TEMP 98.2; O2SAT 98
--- NOTE | 2017-01-13 09:44 | HHI.PR ---
Subjective Remarks seen 1350- back from colonoscopy- tolerated well d/w her results no pain, nausea or vomiting overnight, stools from prep Objective Vitals Vital Signs Date Time Temp Pulse Resp B/P Pulse Ox O2 Delivery O2 Flow Rate FiO2 01/13/17 08:00 98.2 82 18 129/85 98 01/13/17 04:10 97.3 85 18 132/74 97 01/12/17 23:22 98.2 78 18 158/72 99 01/12/17 20:00 Room Air 01/12/17 20:00 80 01/12/17 16:00 98.1 78 18 150/76 100 01/12/17 12:00 97.0 93 18 112/65 95 I/O 01/12/17 01/12/17 01/12/17 01/13/17 01/13/17 01/13/17 07:00 15:00 23:00 07:00 15:00 23:00 Intake Total 1106 ml 240 ml 1842 ml 0 ml Output Total 400 ml Balance 706 ml 240 ml 1842 ml 0 ml Intake Oral 240 ml 240 ml 240 ml 0 ml IV Total 866 ml 1602 ml Output Urine Total 400 ml # Voids 4 3 8 # Bowel Movements 0 1 3 8 Result Diagram: 01/12/17 2321 01/12/17 2321 Imaging Last Impressions Abdomen/Pelvis CT 01/11/17 1121 Signed Impressions: Service Date/Time: Wednesday, January 11, 2017 13:45 - CONCLUSION: 1. Enlargement of the liver with decreased attenuation suggesting fatty infiltration. 2. Trace amount of free fluid within the pelvis. 3. Subtle bowel wall thickening inflammatory changes involving the sigmoid colon suggesting a mild colitis. Everardo Dowd MD Chest X-Ray 01/11/17 1118 Signed Impressions: Service Date/Time: Wednesday, January 11, 2017 11:30 - CONCLUSION: No acute disease. Mau Jackson MD Objective Remarks GENERAL: no distress SKIN: Warm and dry. HEAD: Normocephalic. EYES: No scleral icterus. No injection or drainage. NECK: Supple, trachea midline. No JVD or lymphadenopathy. CARDIOVASCULAR: Regular rate and irregular rhythm without murmurs, gallops, or rubs. RESPIRATORY: Breath sounds equal bilaterally. No accessory muscle use. GASTROINTESTINAL: Abdomen soft, non-tender, nondistended. good bowel sounds MUSCULOSKELETAL: No cyanosis, or edema. Procedures 01/13- colonoscopy A/P Assessment and Plan 71-year-old female presenting with Bradycardia most likely vagal response to severe pain- resolved History of chronic atrial fibrillation- rate controlled- initially jesse from vagal reaction- now rate normal history of hypertension Will monitor on telemetry Will hold off on Xarelto with GIB - continue BB- Lopressor increase to 12.5 mg po bid Acute LGIB due to Acute colitis s/p colonoscopy 01/13- ff pathology report on Levaquin and Flagyl IV. c diff negative MRA of the abdomen ordered Morphine sulfate IV prn for pain Acute kidney injury secondary to diarrhea- Improved Continue on IV fluids Follow BMP History of GERD. Continue on PPI IV route History of hyperlipidemia continue on statins History of hypothyroidism continue on Synthroid. TSH normal TEDs Increase activity Wayne Braswell MD January 13, 2017 09:44
[2017-01-13] MEDS ORDERED: PROPOFOL 200 MG/20 ML AMP IV ONE (11:14)
--- NOTE | 2017-01-13 11:35 | GIPROC ---
[facility] [address] [facility]. [facility], [address] COLONOSCOPY PROCEDURE REPORT EXAM DATE: 01/13/2017 PATIENT NAME: Anika Cole MR #: [id number] BIRTHDATE: 1945 ENDOSCOPIST: Lyudmila Elliott MD ORDER #: [id number] LEARNING PROGRAM MANAGER: Vasu Ye Glinsky, Jason, and Vi Mai STATUS: inpatient INDICATIONS: The patient is a 71 yr old female here for a colonoscopy due to change in bowel habits and hematochezia PROCEDURE PERFORMED: Colonoscopy with biopsy MEDICATIONS: None and Per Anesthesia. PREP QUALITY: The [place] Bowel Prep Score was Right colon 2, Mid colon 3, and Left colon 3. Total = 8. PREP TYPE:GoLytely ESTIMATED BLOOD LOSS: None CONSENT: The patient understands the risks and benefits of the procedure and understands that these risks include, but are not limited to: sedation, allergic reaction, infection, perforation and/or bleeding. Alternative means of evaluation and treatment include, among others: physical exam, x-rays, and/or surgical intervention. The patient elects to proceed with this endoscopic procedure. medical equipment was checked for proper function. Hand hygiene and appropriate measures for infection prevention was taken. After the risks, benefits and alternatives of the procedure were thoroughly explained, Informed consent was verified, confirmed and timeout was successfully executed by the treatment team. A digital exam revealed external hemorrhoids The Pentax [id number] endoscope was introduced through the anus and advanced to the cecum, which was identified by both the appendix and ileocecal valve. The instrument was then slowly withdrawn as the colon was fully examined. COLON FINDINGS: Moderate diverticulosis was noted in the sigmoid colon. A large sized patch of colitis was found in the sigmoid colon. The mucosa was erythematous, friable and had loss of vascularity. Multiple biopsies were performed using cold forceps. Retroflexed views revealed internal hemorrhoids and Retroflexed views revealed small internal hemorrhoids The scope was then completely withdrawn from the patient and the procedure terminated. PROCEDURE WITHDRAWAL TIME:7minutes ADVERSE EVENTS: There were no complications. IMPRESSIONS: 1. Moderate diverticulosis was noted in the sigmoid colon 2. Large sized colitis was found in the sigmoid colon; The mucosa was erythematous, friable and had loss of vascularity; multiple biopsies were performed using cold forceps 3. Retroflexed views revealed internal hemorrhoids 4. Retroflexed views revealed small internal hemorrhoids 5. Revealed external hemorrhoids RECOMMENDATIONS: 1. Await biopsy results. Biopsy results will not be ready for 7-10 days. If you don't hear from us in two weeks, call our office for results. 2. Yearly hemoccult 3. No seeds, nuts and popcorn in diet 4. MRA RECALL: Return 3 months Colonoscopy, pending biopsy results Lyudmila Elliott MD eSigned: Lyudmila Elliott MD 01/13/2017 11:35 AM cc: PATIENT NAME: Anika Cole MR#: [id number]
[2017-01-13 11:40] VITALS: PULSE 83
[2017-01-13 16:00] VITALS: BP 151/75; PULSE 74; RESP 20; TEMP 98.1; O2SAT 97
[2017-01-13] MEDS: PANTOPRAZOLE SODIUM 40 MG VIAL IV PUSH SCH (16:34)
[2017-01-13] MEDS: LEVOFLOXACIN 500 MG PREMIX INJ 100 ML IV SCH (16:34)
[2017-01-13] MEDS ORDERED: GADODIAMIDE PF 287 MG/ML 10 ML VIAL (for RAD MRI) IV ONE (16:39)
--- NOTE | 2017-01-13 17:00 | RADRPT ---
EXAM DATE/TIME: 01/13/2017 15:33 [facility] COMPARISON: CT ABDOMEN & PELVIS W CONTRAST, January 11, 2017, 13:45. INDICATIONS : Ischemia. CONTRAST: 30 cc Omniscan (gadodiamide) IV MEDICAL HISTORY : None SURGICAL HISTORY : Hysterectomy. Breast augmentation. ENCOUNTER: Initial ACUITY: 1 day PAIN SCORE: 0/10 LOCATION: Abdomen TECHNIQUE: Bolus infused MR angiography was performed. The data was postprocessed with a variety of visualizati on algorithms including full-volume maximum-intensity projection, multiplanar sliding thin slab refor mation, and curved planar reformation. FINDINGS: The abdominal aorta is widely patent. The celiac and SMA are widely patent. The MAI is patent. The re nal artery ostia are widely patent bilaterally. On the right, there is some beading and septation of the distal main renal artery, appearance consistent with fibromuscular dysplasia. Some mild similar c hanges present in the external iliac vessels bilaterally, right worse than left. Elsewhere on the exam comment note is made of hepatic steatosis and a couple small hepatic cysts CONCLUSION: No evidence of mesenteric arterial stenosis. Changes of fibromuscular dysplasia involving the right renal artery and proximal external iliac vesse ls bilaterally. Mau Jackson MD on January 13, 2017 at 16:53 Board Certified Radiologist. This report was verified electronically.
[2017-01-13 20:00] VITALS: BP 138/61; PULSE 77; PULSE 83; RESP 19; TEMP 97.8; O2SAT 100
[2017-01-13] MEDS: ATORVASTATIN 40 MG TAB PO SCH (21:15)
[2017-01-14] VITALS: BP 146/74; PULSE 79; RESP 18; TEMP 97.8; O2SAT 100
[2017-01-14] MEDS: metroNIDAZOLE 500 MG INJ 100 ML IV SCH ×2 (00:20→08:31)
[2017-01-14 04:00] VITALS: BP 141/73; PULSE 71; RESP 20; TEMP 97.9; O2SAT 99
[2017-01-14] MEDS: LEVOTHYROXINE SODIUM 75 MCG TAB PO SCH (05:56)
[2017-01-14 08:06] VITALS: BP 148/80; PULSE 66; RESP 17; TEMP 97.8; O2SAT 99
[2017-01-14 08:18] VITALS: PULSE 83
[2017-01-14] MEDS: LISINOPRIL 10 MG TAB PO SCH (08:31)
[2017-01-14] MEDS: METOPROLOL TARTRATE 25 MG TAB PO SCH (08:31)
[2017-01-14 12:06] VITALS: BP 144/75; PULSE 68; RESP 17; TEMP 97.8; O2SAT 99
--- NOTE | 2017-01-14 12:12 | HHI.GIFU ---
Subjective Remarks Patient is walking in the hallway, feeling sad. She denies nausea, vomiting or bleeding. She reports loose stools after eating proceeded it by lower abd cramps (Sindy,Sabrina MCKEON) Objective Vitals I&O Vital Signs Date Time Temp Pulse Resp B/P Pulse Ox O2 Delivery O2 Flow Rate FiO2 01/14/17 08:35 Room Air 01/14/17 08:18 83 01/14/17 08:06 97.8 66 17 148/80 99 01/14/17 04:00 97.9 71 20 141/73 99 01/14/17 00:00 97.8 79 18 146/74 100 01/13/17 20:00 97.8 83 19 138/61 100 01/13/17 20:00 77 01/13/17 20:00 Room Air 01/13/17 16:00 98.1 74 20 151/75 97 I/O 01/13/17 01/13/17 01/13/17 01/14/17 01/14/17 01/14/17 07:00 15:00 23:00 07:00 15:00 23:00 Intake Total 0 ml 540 ml 960 ml 120 ml Balance 0 ml 540 ml 960 ml 120 ml Intake Oral 0 ml 240 ml 380 ml 120 ml IV Total 580 ml Other 300 ml # Voids 8 5 3 3 # Bowel Movements 8 3 Laboratory Laboratory Tests Test 01/12/17 23:21 White Blood Count 12.6 TH/MM3 Red Blood Count 4.25 MIL/MM3 Hemoglobin 10.9 GM/DL Hematocrit 34.8 % Mean Corpuscular Volume 81.9 FL Mean Corpuscular Hemoglobin 25.6 PG Mean Corpuscular Hemoglobin 31.3 % Concent Red Cell Distribution Width 17.1 % Platelet Count 205 TH/MM3 Mean Platelet Volume 7.8 FL Sodium Level 137 MEQ/L Potassium Level 3.7 MEQ/L Chloride Level 105 MEQ/L Carbon Dioxide Level 21.9 MEQ/L Anion Gap 10 MEQ/L Blood Urea Nitrogen 10 MG/DL Creatinine 0.77 MG/DL Estimat Glomerular Filtration 74 ML/MIN Rate Random Glucose 112 MG/DL Calcium Level 7.9 MG/DL Magnesium Level 1.7 MG/DL Troponin I LESS THAN 0.02 NG/ML Imaging Last Impressions Abdomen Magnetic Resonance Angio 01/13/17 0000 Signed Impressions: Service Date/Time: Friday, January 13, 2017 15:33 - CONCLUSION: No evidence of mesenteric arterial stenosis. Changes of fibromuscular dysplasia involving the right renal artery and proximal external iliac vessels bilaterally. aMu Jackson MD Abdomen/Pelvis CT 01/11/17 1121 Signed Impressions: Service Date/Time: Wednesday, January 11, 2017 13:45 - CONCLUSION: 1. Enlargement of the liver with decreased attenuation suggesting fatty infiltration. 2. Trace amount of free fluid within the pelvis. 3. Subtle bowel wall thickening inflammatory changes involving the sigmoid colon suggesting a mild colitis. Everardo Dowd MD Chest X-Ray 01/11/17 1118 Signed Impressions: Service Date/Time: Wednesday, January 11, 2017 11:30 - CONCLUSION: No acute disease. Mau Jackson MD Physical Exam HEENT: EOMI; normocephalic; atraumatic; no jaundice. CHEST: Chest is clear to auscultation and percussion. CARDIAC: Regular rate and rhythm with no murmur gallop or rubs. ABDOMEN: Soft, nondistended, RLQ tenderness; no hepatosplenomegaly; bowel sounds are present in all four quadrants. EXTREMITIES: No clubbing, cyanosis, or edema. SKIN: Normal; no rash; no jaundice. SHOE PARTS MOLDER: No focal deficits; alert and oriented times three. (Sabrina Callahan) Assessment and Plan Plan ASSESSMENT: - colitis - pt with diarrhea, passing blood with BMs. c diff neg. S/P colonoscopy on (01/13/17) showed the followin. Moderate diverticulosis was noted in the sigmoid colon 2. Large sized colitis was found in the sigmoid colon; The mucosa was erythematous, friable and had loss of vascularity; multiple biopsies were performed using cold forceps 3. Retroflexed views revealed internal hemorrhoids 4. Retroflexed views revealed small internal hemorrhoids 5. Revealed external hemorrhoids Bx pending Abdomen Magnetic Resonance Angio 01/13/17 No evidence of mesenteric arterial stenosis. Changes of fibromuscular dysplasia involving the right renal artery and proximal external iliac vessels bilaterally CT 01-11-17 ---> 1. Enlargement of the liver with decreased attenuation suggesting fatty infiltration. 2. Trace amount of free fluid within the pelvis. 3. Subtle bowel wall thickening inflammatory changes involving the sigmoid colon suggesting a mild colitis. antibiotics. Colonoscopy tomorrow. PLAN: - [place] - Await bx - Colonoscopy in 3 months - Okay to DC home - F/u with GI in 2 weeks - continue abx - supportive care This pt seen by myself and Dr Elliott and this note is written on his behalf ( Sabrina Callahan) Physician Comments Seen and examined with MACHINE PLATE STACKER< likely ischemic colitis, MRA -ve for obstruction. Diet as tolerated. Resume anticoagulation tomorrow. Can dc home with gi fu. Discussed with DR. Villalba. Thank you (Lyudmila Elliott MD) Sabrina Callahan January 14, 2017 12:12 Lyudmila Elliott MD January 14, 2017 14:25
--- NOTE | 2017-01-14 13:50 | HHI.PR ---
Subjective Remarks patient feeling much better no episodes diarrhea and hematochezia Objective Vitals Vital Signs Date Time Temp Pulse Resp B/P Pulse Ox O2 Delivery O2 Flow Rate FiO2 01/14/17 08:35 Room Air 01/14/17 08:18 83 01/14/17 08:06 97.8 66 17 148/80 99 01/14/17 04:00 97.9 71 20 141/73 99 01/14/17 00:00 97.8 79 18 146/74 100 01/13/17 20:00 97.8 83 19 138/61 100 01/13/17 20:00 77 01/13/17 20:00 Room Air 01/13/17 16:00 98.1 74 20 151/75 97 I/O 01/13/17 01/13/17 01/13/17 01/14/17 01/14/17 01/14/17 07:00 15:00 23:00 07:00 15:00 23:00 Intake Total 0 ml 540 ml 960 ml 120 ml Balance 0 ml 540 ml 960 ml 120 ml Intake Oral 0 ml 240 ml 380 ml 120 ml IV Total 580 ml Other 300 ml # Voids 8 5 3 3 # Bowel Movements 8 3 Result Diagram: 01/12/17 2321 01/12/17 2321 Imaging Last Impressions Abdomen Magnetic Resonance Angio 01/13/17 0000 Signed Impressions: Service Date/Time: Friday, January 13, 2017 15:33 - CONCLUSION: No evidence of mesenteric arterial stenosis. Changes of fibromuscular dysplasia involving the right renal artery and proximal external iliac vessels bilaterally. Mau Jackson MD Abdomen/Pelvis CT 01/11/17 1121 Signed Impressions: Service Date/Time: Wednesday, January 11, 2017 13:45 - CONCLUSION: 1. Enlargement of the liver with decreased attenuation suggesting fatty infiltration. 2. Trace amount of free fluid within the pelvis. 3. Subtle bowel wall thickening inflammatory changes involving the sigmoid colon suggesting a mild colitis. Everardo Dowd MD Chest X-Ray 01/11/17 1118 Signed Impressions: Service Date/Time: Wednesday, January 11, 2017 11:30 - CONCLUSION: No acute disease. Mau Jackson MD Objective Remarks GENERAL: no distress SKIN: Warm and dry. HEAD: Normocephalic. EYES: No scleral icterus. No injection or drainage. NECK: Supple, trachea midline. No JVD or lymphadenopathy. CARDIOVASCULAR: Regular rate and irregular rhythm without murmurs, gallops, or rubs. RESPIRATORY: Breath sounds equal bilaterally. No accessory muscle use. GASTROINTESTINAL: Abdomen soft, non-tender, nondistended. good bowel sounds MUSCULOSKELETAL: No cyanosis, or edema. Procedures 01/13- colonoscopy A/P Assessment and Plan 71-year-old female presenting with Bradycardia most likely vagal response to severe pain- resolved History of chronic atrial fibrillation- rate controlled- initially jesse from vagal reaction- now rate normal history of hypertension Will monitor on telemetry Will hold off on Xarelto - may restart as OP tomorrow or monday- d/w Dr. Elliott continue BB-Lopressor 12.5 mg po bid Acute LGIB due to Acute colitis s/p colonoscopy 01/13- Ischemic colitis ff pathology report- pending DC Levaquin and flagyl- d/w Dr. Elliott c diff negative MRA of the abdomen - negative OP ff up with GI- in 2 weeks Acute kidney injury secondary to diarrhea- Improved encourage po intake and fluids History of GERD. Continue on PPI History of hyperlipidemia continue on statins History of hypothyroidism continue on Synthroid. TSH normal TEDs DC home today OP ff up with PCP in 3 days, GI in 2 weeks Meds as above Activity as tolerated diet - advise high fibre diet, encourage po fluids d/w daughter about her concern about her forgetfullness- actually set up for memory testing Wayne Braswell MD January 14, 2017 13:50
[2017-01-14] MEDS ORDERED: METO25TA3 PO (13:56)
--- NOTE | 2017-01-14 14:04 | HHI.DS ---
Discharge Summary Admission Date January 11, 2017 at 15:37 Discharge Date: January 14, 2017 Admitting Diagnosis colitis (1) Ischemic colitis ICD Code: K55.9 Diagnosis: Principal (2) Atrial fibrillation ICD Code: I48.91 Diagnosis: Secondary Procedures 01/13- colonoscopy Brief History - From Admission Patient is a very pleasant 70-year-old female with known history of atrial fibrillation, hypertension, hypothyroidism who this morning while driving suddenly experienced abdominal cramps severe almost to the point of passing out. Patient pulled the car over to the side and called her who in turn called EMS and on site patient's heart rate was noted to be in the 30s. Patient was in severe pain. She was given atropine IV on the site. On further questioning patient has been having on and off diarrhea all her life and has had several colonoscopies several times in the past. Patient moves her bowels on a daily basis intermittent loose stools. However for the past 2-3 days have been having loose stools brown yellow liquid. On evaluation here in the ER was noted to have guaiac-positive stools and lupus stools had bright red blood. patient admitted for further evaluation and management. Denies any family members with the same complaints CBC/BMP: 01/12/17 2321 01/12/17 2321 Significant Findings Laboratory Tests Test 01/12/17 01/12/17 01/12/17 06:14 12:06 23:21 Estimat Glomerular Filtration 57 ML/MIN (>89) 74 ML/MIN (>89) Rate Random Glucose 110 MG/DL 112 MG/DL (74-106) (74-106) Calcium Level 8.2 MG/DL 7.9 MG/DL (8.5-10.1) (8.5-10.1) White Blood Count 14.0 TH/MM3 12.6 TH/MM3 (4.0-11.0) (4.0-11.0) Hemoglobin 11.3 GM/DL 10.9 GM/DL (11.6-15.3) (11.6-15.3) Mean Corpuscular Hemoglobin 25.7 PG 25.6 PG (27.0-34.0) (27.0-34.0) Mean Corpuscular Hemoglobin 31.6 % 31.3 % Concent (32.0-36.0) (32.0-36.0) Hematocrit 34.8 % (35.0-46.0) Troponin I LESS THAN 0.02 NG/ML (0.02-0.05) Imaging Last Impressions Abdomen Magnetic Resonance Angio 01/13/17 0000 Signed Impressions: Service Date/Time: Friday, January 13, 2017 15:33 - CONCLUSION: No evidence of mesenteric arterial stenosis. Changes of fibromuscular dysplasia involving the right renal artery and proximal external iliac vessels bilaterally. Mau Jackson MD Abdomen/Pelvis CT 01/11/17 1121 Signed Impressions: Service Date/Time: Wednesday, January 11, 2017 13:45 - CONCLUSION: 1. Enlargement of the liver with decreased attenuation suggesting fatty infiltration. 2. Trace amount of free fluid within the pelvis. 3. Subtle bowel wall thickening inflammatory changes involving the sigmoid colon suggesting a mild colitis. Everardo Dowd MD Chest X-Ray 01/11/17 1118 Signed Impressions: Service Date/Time: Wednesday, January 11, 2017 11:30 - CONCLUSION: No acute disease. Mau Jackson MD PE at Discharge GENERAL: no distress SKIN: Warm and dry. HEAD: Normocephalic. EYES: No scleral icterus. No injection or drainage. NECK: Supple, trachea midline. No JVD or lymphadenopathy. CARDIOVASCULAR: Regular rate and irregular rhythm without murmurs, gallops, or rubs. RESPIRATORY: Breath sounds equal bilaterally. No accessory muscle use. GASTROINTESTINAL: Abdomen soft, non-tender, nondistended. good bowel sounds MUSCULOSKELETAL: No cyanosis, or edema. Pt update on day of discharge awake and alert no complains no diarrhea, hematochezia, no abdominal pain d/w daughter at length Hospital Course 71-year-old female presenting with Bradycardia most likely vagal response to severe pain- resolved History of chronic atrial fibrillation- rate controlled- initially jesse from vagal reaction- now rate normal history of hypertension Will monitor on telemetry Will hold off on Xarelto - may restart as OP tomorrow or monday- d/w Dr. Elliott continue BB-Lopressor 12.5 mg po bid Acute LGIB due to Acute colitis s/p colonoscopy 01/13- Ischemic colitis ff pathology report- pending DC Levaquin and flagyl- d/w Dr. Earl wallace diff negative MRA of the abdomen - negative OP ff up with GI- in 2 weeks Acute kidney injury secondary to diarrhea- Improved encourage po intake and fluids History of GERD. Continue on PPI History of hyperlipidemia continue on statins History of hypothyroidism continue on Synthroid. TSH normal TEDs DC home today OP ff up with PCP in 3 days, GI in 2 weeks Meds as above Activity as tolerated diet - advise high fibre diet, encourage po fluids d/w daughter about her concern about her forgetfullness- actually set up for memory testing Pt Condition on Discharge: Stable Discharge Disposition: Discharge Home Discharge Time: <= 30 minutes Discharge Instructions DIET: Follow Instructions for: Heart Healthy Diet Speech Therapy-Diet Recommends: Regular Activities you can perform: Weight Bearing as Samira Follow up Referrals: Gastroenterology - 2 Weeks with Lyudmila Elliott MD PCP Follow-up - 01/17/17 with G[facility]E New Medications: Metoprolol Tartrate (Metoprolol Tartrate) 25 Mg Tab 12.5 MG PO Q12HR fiv/htn Days 30 TAB Continued Medications: Atorvastatin (Atorvastatin) 40 Mg Tab 40 MG PO HS Cholesterol Management #30 Ref 0 TAB Coenzyme Q10 (Ubidecarenone) (Co Q 10) 100 Mg Cap 100 MG PO DAILY Desvenlafaxine ER 24 HR (Pristiq 24 HR) 100 Mg Tab 100 MG PO HS TAB Digoxin (Digoxin) 0.125 Mg Tab 0.125 MG PO DAILY Regulate Heart Beat #30 Ref 0 TAB Levothyroxine (Levothyroxine) 75 Mcg Tab 75 MCG PO DAILY Thyroid #30 Ref 0 TAB Lisinopril (Lisinopril) 10 Mg Tab 10 MG PO DAILY #30 Ref 0 TAB Omeprazole-Sodium Bicarbonate (Zegerid) 20-1,100 Mg Cap 1 CAP PO DAILY #30 Ref 0 CAP Rivaroxaban (Xarelto) 20 Mg Tab 20 MG PO DAILY Blood Clot Prevention Ref 0 TAB Discontinued Medications: Doxycycline (Monohydrate) (Doxycycline) 50 Mg Cap 50 MG PO EVERY OTHER DAY Metoprolol Tartrate (Metoprolol Tartrate) 25 Mg Tab 25 MG PO DAILY #30 Ref 0 TAB Wayne Braswell MD January 14, 2017 14:04
--- NOTE | 2017-01-14 22:10 | EKG ---
Date Performed: 01/12/2017 Time Performed: 22:20:42 PTAGE: 71 years EKG: Atrial fibrillation. Leftward axis Abnormal ECG PREVIOUS TRACING : 01/11/2017 10.57 DOCTOR: Tanisha Walker Interpretating Date/Time 01/14/2017 22:02:36
== END 2017-01-14 14:45 | disposition home or self-care (01) | DRG 394 ==
LOC: NEPC 10:49 → NEDA 15:37 → N04A 18:08
PROVIDERS: ADMIT Internal Medicine; ATTEND Internal Medicine
PROC: 0DBN8ZX Excision of Sigmoid Colon, Via Natural or Artificial Opening Endoscopic, Diagnostic (ICD-10-PCS; principal; 2017-01-13 11:07)
DX: K55.9 Vascular disorder of intestine, unspecified (principal); K92.2 Gastrointestinal hemorrhage, unspecified; N17.9 Acute kidney failure, unspecified; R00.1 Bradycardia, unspecified; I48.2 Chronic atrial fibrillation; I10 Essential (primary) hypertension; K21.9 Gastro-esophageal reflux disease without esophagitis; E11.9 Type 2 diabetes mellitus without complications; G47.33 Obstructive sleep apnea (adult) (pediatric); E78.5 Hyperlipidemia, unspecified; E03.9 Hypothyroidism, unspecified; K57.30 Diverticulosis of large intestine without perforation or abscess without bleeding; K64.4 Residual hemorrhoidal skin tags; K64.8 Other hemorrhoids; Z98.82 Breast implant status; Z87.891 Personal history of nicotine dependence
CPT/HCPCS: 71010; 74177; 80048; 80053; 80162; 81001; 83735; 84443; 84484; 85025; 85027; 85610; 85730; 87493; 88305; 93005; 96361; 96374; 96375; A9579; C8900; C9113; J1200; J1956; J2270; J2405; J2765; J3480; J7030; Q9967